=== PATIENT | female | born 1945 | race Caucasian/White ===

== ENCOUNTER 2019-08-20 14:43 | Emergency (ER) | payer SELFPAY ==
[~2019-08-20] VITALS: Ht 144.8 cm; Wt 49.1 kg
[2019-08-20 16:43] VITALS: BP 150/78
== END 2019-08-20 16:46 | disposition left against medical advice (07) ==
LOC: EMS 14:47
DX: S52.572A Other intraarticular fracture of lower end of left radius, initial encounter for closed fracture (principal); W19.XXXA Unspecified fall, initial encounter; Y93.89 Activity, other specified; Y92.89 Other specified places as the place of occurrence of the external cause; Y99.8 Other external cause status